=== PATIENT | female | born 1990 | race Caucasian/White ===

== ENCOUNTER 2016-12-23 15:50 | Emergency (ER) | payer BC ==
[~2016-12-23] VITALS: Ht 175.3 cm; Wt 55.8 kg
[~2016-12-23 15:50] MED LIST: ADDERALL PO; AMPH20CA3 PO; CLON1TAB PO; KLONOPIN
--- NOTE | 2016-12-23 16:51 | NUR ---
DR POPE AT THE BEDSIDE FOR EVAL AND EXAM.
[2016-12-23] MEDS ORDERED: HYDROCODONE/APAP 10-325 MG TABLET PO ONE (17:00)
[2016-12-23] MEDS ORDERED: HYDROCODONE/APAP 10-325 MG TABLET ONE (17:07)
--- NOTE | 2016-12-23 17:13 | NUR ---
Patient does not wish to proceed with medical care recommended by ([email or web address]). Patient given information related to possible complications, up to and including , which could occur as a result of leaving the hospital at this time. Patient verbalizes understanding of risks involved due to leaving against medical advice. Patient refuse to sign AMA form. pt left er w/ steady gait.
[2016-12-23 17:15] VITALS: BP 126/80
== END 2016-12-23 17:16 | disposition left against medical advice (07) ==
LOC: ER 15:51
DX: S69.91XA Unspecified injury of right wrist, hand and finger(s), initial encounter (principal); J45.909 Unspecified asthma, uncomplicated; D64.9 Anemia, unspecified; Z91.040 Latex allergy status; F10.20 Alcohol dependence, uncomplicated; F19.10 Other psychoactive substance abuse, uncomplicated; F17.200 Nicotine dependence, unspecified, uncomplicated; X58.XXXA Exposure to other specified factors, initial encounter; Y93.89 Activity, other specified; Y99.8 Other external cause status; Y92.89 Other specified places as the place of occurrence of the external cause
CPT/HCPCS: A4663